=== PATIENT | female | born 1980 | race Caucasian/White ===

== ENCOUNTER 2018-01-06 10:13 | Emergency (ER) | payer OTHER ==
[~2018-01-06] VITALS: Ht 170.2 cm; Wt 86.4 kg
[2018-01-06] MEDS ORDERED: FLEXERIL10 MG PO (12:53)
[2018-01-06] MEDS ORDERED: NORCO 5/3251 TABLET PO (12:55)
[2018-01-06 13:16] VITALS: BP 126/70
== END 2018-01-06 13:17 | disposition home or self-care (01) ==
LOC: EME 10:13
DX: S70.02XA Contusion of left hip, initial encounter (principal); S86.912A Strain of unspecified muscle(s) and tendon(s) at lower leg level, left leg, initial encounter; W00.0XXA Fall on same level due to ice and snow, initial encounter
CPT/HCPCS: 73502; 73552; 99281; 99284; J3010